=== PATIENT | female | born 1940 | race Caucasian/White ===

== ENCOUNTER → 2017-09-02 | Outpatient (CLI) | payer OTHER | LOC: M.RAD 08-30 10:40 | DX: Z12.31 Encounter for screening mammogram for malignant neoplasm of breast (principal); M81.0 Age-related osteoporosis without current pathological fracture; N91.2 Amenorrhea, unspecified ==

== ENCOUNTER → 2018-06-29 | Outpatient (CLI) | payer OTHER ==
--- NOTE | 2018-06-29 18:32 | 2DMMODE ---
[place] [address] 2 D/M-MODE ECHOCARDIOGRAM Name: LIV BAE Room: [facility]#: [id number] Admission: 06/29/18 Attend Phys: ALVIN CAAL Discharge: Date of : 44 Date of Service: 06/29/18 1832 Report #: [id number] THIS REPORT FOR: //name// APPROVED REPORT Study performed: 06/29/2018 14:55:28 EXAM: Comprehensive 2D, Doppler, and color-flow Echocardiogram Patient Location: Out-Patient BSA: 1.87 HR: 75 bpm BP: 135/81 mmHg Other Information Study Quality: Good Indications Murmur Hypertension/HDD 2D Dimensions IVSd: 12.43 (7-11mm) LVOT Diam: 19.47 (18-24mm) LVDd: 36.60 mm PWd: 9.53 (7-11mm) Ascending Ao: 26.76 (22-36mm) LVDs: 22.71 (25-40mm) Aortic Root: 21.47 mm Volumes Left Atrial Volume (Systole) LA ESV Index: 8.60 mL/m2 Aortic Valve AoV Peak Jamie.: 1.44 m/s AO Peak Gr.: 8.32 mmHg LVOT Max P.36 mmHg AO Mean Gr.: 4.20 mmHg LVOT Mean P.55 mmHg LVOT Max V: 1.16 m/s AO V2 VTI: 28.96 cm LVOT Mean V: 0.73 m/s MAKI (VTI): 2.57 cm2 LVOT V1 VTI: 25.03 cm Mitral Valve E/A Ratio: 0.74 MV Decel. Time: 227.91 ms MV E Max Jamie.: 0.54 m/s MV PHT: 66.09 [place] [address] 2 D/M-MODE ECHOCARDIOGRAM Name: LIV BAE Room: [facility]#: [id number] Admission: 06/29/18 Attend Phys: ALVIN CAAL Discharge: Date of : 44 Date of Service: 06/29/18 1832 Report #: [id number] MVA (PHT): 3.33 cm2 TDI E/Lateral E': 6.00 E/Medial E': 5.40 Medial E' Jamie.: 0.10 m/s Lateral E' Jamie.: 0.09 m/s Pulmonary Valve PV Peak Jamie.: 0.86 m/s PV Peak Gr.: 2.95 mmHg Tricuspid Valve RAP Estimate: 5.00 mmHg TR Peak Gr.: 20.90 mmHg RVSP: 25.90 mmHg PA Pressure: 25.90 mmHg Left Ventricle The left ventricle is normal size. There is normal LV segmental wall motion. There is normal left ventricular wall thickness. Left ventricular systolic function is normal. The left ventricular ejection fraction is within the normal range. LVEF is 55-60%. Grade I - abnormal relaxation pattern. Right Ventricle The right ventricle is normal size. The right ventricular systolic function is normal. Atria The left atrium size is normal. The right atrium size is normal. Aortic Valve Mild aortic valve sclerosis. No aortic regurgitation is present. There is no aortic valvular stenosis. Mitral Valve The mitral valve is normal in structure. Mild mitral regurgitation. No evidence of mitral valve stenosis. Tricuspid Valve The tricuspid valve is normal in structure. Mild tricuspid regurgitation. Pulmonic Valve The pulmonary valve is normal in structure. There is no pulmon[place] [address] 2 D/M-MODE ECHOCARDIOGRAM Name: LIV BAE Room: [facility]#: [id number] Admission: 06/29/18 Attend Phys: ALVIN CAAL Discharge: Date of : 44 Date of Service: 06/29/18 1832 Report #: [id number] Great Vessels The aortic root is normal in size. IVC is normal in size and collapses >50% with inspiration. Pericardium There is no pericardial effusion. <Conclusion> The left ventricle is normal size. There is normal left ventricular wall thickness. Left ventricular systolic function is normal. The left ventricular ejection fraction is within the normal range. LVEF is 55-60%. Grade I - abnormal relaxation pattern. The right ventricle is normal size. The left atrium size is normal. Mild aortic valve sclerosis. No aortic regurgitation is present. There is no aortic valvular stenosis. The mitral valve is normal in structure. Mild mitral regurgitation. The tricuspid valve is normal in structure. IVC is normal in size and collapses >50% with inspiration. There is no pericardial effusion. There is normal LV segmental wall motion. <ELECTRONICALLY SIGNED> By: Benji Hansen MD, FACC 06/29/181831 31 31 Benji Hansen MD, FACC /INF
== END ==
LOC: M.CRD 14:38
DX: I34.0 Nonrheumatic mitral (valve) insufficiency (principal); I35.0 Nonrheumatic aortic (valve) stenosis; I10 Essential (primary) hypertension; R01.1 Cardiac murmur, unspecified

== ENCOUNTER → 2018-09-05 | Outpatient (CLI) | payer OTHER | LOC: M.RAD 09:07 | DX: Z12.31 Encounter for screening mammogram for malignant neoplasm of breast (principal) ==

== ENCOUNTER → 2018-12-23 | Outpatient (CLI) | payer OTHER | LOC: M.CT 13:09 | DX: I67.82 Cerebral ischemia (principal); G31.9 Degenerative disease of nervous system, unspecified; I65.23 Occlusion and stenosis of bilateral carotid arteries ==

== ENCOUNTER → 2019-03-02 | Outpatient (CLI) | payer OTHER ==
--- NOTE | 2019-03-02 21:03 | CARDNUC ---
[place] [address] CARDIAC NUCLEAR IMAGING REPORT Name: KATHIALIV J Room: [facility]#: [id number] Admission: 03/02/19 Attend Phys: Sabrina Tapia, Discharge: Date of : 44 Date of Service: 03/02/192102 Report #: [id number] THIS REPORT FOR: //name// APPROVED REPORT Study performed: 03/02/2019 14:35:15 Exam: Nuclear Stress Test Indication: Dyspnea, Chest pain Patient Location: Out-Patient Stress Tech: Shruthi Wiggins Stress Nurse: Radha Johnston RN NM Tech:HANDY Poole Ht: 5 ft 5 in Wt: 170 lbs BSA: 1.85 m2 BMI: 28.28 Medical History Medical History: mild mariya valve regurg. hyperlipidemia Medications: lipitor Allergies: penicillin Cardiac Risk Factors: age, hyprlipidemia Previous Cardiac Procedures: none Exercise History: Physically active Stress Test Details Stress Test: Exercise stress testing was performed using a Dionisio protocol. HR Resting HR: 76 bpm Max Heart Rate (APMHR): 144 bpm Max HR Achieved: 145 bpm Target HR (85% APMHR): 122 bpm % of APMHR: 100 Recovery HR: 94 bpm BP Resting BP: 198/98 mmHg Max BP: 203/91 mmHg ECG Resting ECG: Sinus Rhythm Stress ECG: Sinus Tachycardia ST Change: None Arrhythmia: None Recovery ECG: Sinus Rhythm Recovery [place] Change: [place] [address] CARDIAC NUCLEAR IMAGING REPORT Name: LIV BAE Room: [facility]#: [id number] Admission: 03/02/19 Attend Phys: Sabrina Tapia, Discharge: Date of : 44 Date of Service: 03/02/19 2103 Report #: [id number] Recovery Arrhythmia: None Clinical Reason for Termination: Dyspnea, Fatigue Exercise duration: 8 min 33 sec Exercise capacity: 10.16 METs Overall Exercise Capacity for Age: Superior Functional Aerobic Impairment 101% The patient tolerated standard Dionisio protocol exercise without significant cardiac symptoms. Stress ECG Conclusion The baseline 12-lead EKG shows sinus rhythm without significant ST or T wave abnormality. EKGs obtained during exercise show sinus rhythm and sinus tachycardia with no significant ST or T wave changes when compared to baseline. There were no significant stress-induced arrhythmias. NM EXAM: Myocardial Perfusion REST/STRESS Imaging Protocol: Rest Tc-99m/Stress Tc-99m 1 day Resting Data Rest SPECT myocardial perfusion imaging was performed in supine position 30 minutes following the intravenous injection of 11.4 mCi of Tc-99m Sestamibi. Time of rest injection: 1250 Date: 03/02/2019 The images were gated to evaluate regional wall motion and calculate left ventricular ejection fraction. Administration Route: IV Administration Site: Left AC Exercise Stress At peak stress, the patient was injected intravenously with 34.4mCi of Tc-99m Sestamibi. Time of stress injection: 1440 Date: 03/02/2019 Administration Route: IV Administration Site: Left AC Gated Stress SPECT was performed 30 minutes after stress injection. The images were gated to evaluate regional wall motion and calculate left ventricular ejection fraction. Prone imaging was performed. Study Quality Study: Good Artifact: [place] [address] CARDIAC NUCLEAR IMAGING REPORT Name: LIV BAE Room: [facility]#: [id number] Admission: 03/02/19 Attend Phys: Sabrina Tapia, Discharge: Date of : 44 Date of Service: 03/02/192102 Report #: [id number] Study Data At rest, the left ventricular ejection fraction was 76%.. Post stress, the left ventricular ejection was 72%.. TID = 0.87. Perfusion Myocardial perfusion images obtained at rest and post exercise stress show uniform uptake of the radioisotope throughout the myocardium without defect. Wall Motion Normal left ventricular wall motion. Nuclear Conclusion ECG Findings: negative for ischemia Clinical Findings: negative for ischemia Nuclear Findings: negative for ischemia Exercise Capacity: normal Left Ventricular Function: normal Risk Study: low Myocardial perfusion images show no defect to suggest infarct or ischemia. Left ventricular systolic function appears normal on gated studies. This is a low risk study. <Conclusion> The baseline 12-lead EKG shows sinus rhythm without significant ST or T wave abnormality. EKGs obtained during exercise show sinus rhythm and sinus tachycardia with no significant ST or T wave changes when compared to baseline. There were no significant stress-induced arrhythmias. <ELECTRONICALLY SIGNED> By: Alexandru Alvarado MD, FACC 03/02/192102 02 02 Alexandru Alvarado MD, FACC /INF
== END ==
LOC: M.NUC 02-21 16:06
DX: R07.89 Other chest pain (principal); I10 Essential (primary) hypertension; E78.00 Pure hypercholesterolemia, unspecified; R42 Dizziness and giddiness; E07.89 Other specified disorders of thyroid; E11.9 Type 2 diabetes mellitus without complications; Z88.0 Allergy status to penicillin; Z90.49 Acquired absence of other specified parts of digestive tract; Z98.42 Cataract extraction status, left eye; Z98.41 Cataract extraction status, right eye

== ENCOUNTER → 2020-03-05 | Outpatient (CLI) | payer OTHER | LOC: M.RAD 02-28 09:00 | PROVIDERS: ATTEND Nurse Practitioner Family | DX: Z12.31 Encounter for screening mammogram for malignant neoplasm of breast (principal); M81.0 Age-related osteoporosis without current pathological fracture; M85.88 Other specified disorders of bone density and structure, other site ==

== ENCOUNTER → 2021-03-25 | Outpatient (CLI) | payer OTHER | LOC: M.RAD 10:12 | PROVIDERS: ATTEND Family Medicine | DX: Z12.31 Encounter for screening mammogram for malignant neoplasm of breast (principal) ==